=== PATIENT | female | born 1995 | race Caucasian/White ===

== ENCOUNTER 2016-08-14 10:24 | Inpatient (IN) | payer MEDICAID | END 2016-09-15 13:57 | disposition home or self-care (01) | DRG 895 | DX: F12.20 Cannabis dependence, uncomplicated (principal); F15.20 Other stimulant dependence, uncomplicated; F16.20 Hallucinogen dependence, uncomplicated; F10.21 Alcohol dependence, in remission; J06.9 Acute upper respiratory infection, unspecified; Z63.72 Alcoholism and drug addiction in family; Z65.3 Problems related to other legal circumstances ==

== ENCOUNTER 2016-10-16 17:58 | Emergency (ER) | payer MEDICAID ==
--- NOTE | 2016-10-21 23:44 | ER ---
ADMIT: 10/16/2016 RM/LOC: ER [facility] MR#: [id number] [facility] [address] [place] [id number] KAMRAN SAM [address] [place] [address] Emergency Room Report SEX: F AGE: 21 : 1995 DATE: 10/16/2016 HISTORY OF PRESENT ILLNESS: The patient is a 21-year-old female, presents to the emergency room with a headache 24 hours, now she has some nausea, vomiting, photophobia, or visual disturbances. She has an extensive history of migraine headaches. She takes sertraline. No allergies. Vitals within normal limits. Points to the forehead on examination. Smoker and alcohol rarely. She mentions that she is sexually active and has had unprotected sex, so before we do give her medications, we are going to check for . PHYSICAL EXAMINATION: GENERAL: Her examination is totally negative. She has a [id number]-dytvosvh anxiety. NECK: Supple. RESPIRATIONS: No distress. HEENT: Extraocular muscles are intact. Forehead tender, but no sinus tenderness. There is positive for photophobia. SKIN: Good color. EXTREMITIES: Well perfused. NEUROLOGIC: Oriented x4. LABORATORY DATA: Urine, rbc's 9, mucus rare. UA negative for test. Boyfriend here. She is acting much improved even without medications. I went ahead and gave her Phenergan and Toradol, which was very helpful. Her pain almost subsided and her nausea stopped. She mentions her level of pain at discharge 07/04. Instructions given for followup. CLINICAL IMPRESSION: Migraine headache. DEAN Garcia / Jagdish Funez MD / mehran JOB #: [id number] CC: Jagdish Funez MD, Attending Physician Kimberly Brunson MD, Family Physician
== END 2016-10-16 20:08 | disposition home or self-care (01) ==
LOC: ER 17:58
DX: G43.909 Migraine, unspecified, not intractable, without status migrainosus (principal)